=== PATIENT | male | born 1970 | race African-American/Black ===

== ENCOUNTER 2019-09-18 10:03 | Inpatient (IN) | payer SELFPAY ==
--- NOTE | 2019-09-18 10:18 | CT ---
Head CT without contrast: 09/18/2019 COMPARISON: None HISTORY: Right-sided weakness with facial droop and slurred speech FINDINGS: This study is slightly limited by motion artifact. There is an intra-axial hemorrhage in th e left basal ganglia measuring 4.4 x 2.4 cm with surrounding edema. This edema is seen anteriorly, abutting the lateral aspect of the left caudate head. No significant midline shift. Imaged paranasal sinuses/mastoid air cells demonstrate opacification of the mastoid air cells on the left. No displaced calvarial fracture. IMPRESSION: Intra-axial hemorrhage centered in the left basal ganglia. Dr. Macario made aware at 10:13 AM 09/21/2019.
[2019-09-18] MEDS ORDERED: niCARdipine 25 MG in Sodium Chloride 0.9% 250 ML 240 ML IVPB SCH (10:30)
[2019-09-18 10:37] LABS: #Lymphocytes 2.2 thou/uL (1.20-3.40); #Monocytes 0.4 thou/uL (0.11-0.59); #Neutrophils 2.1 thou/uL (1.40-6.50); %Basophils 0.3 % (0.0-1.0); %Eosinophils 0.4 % (0.0-10.0); %Lymphocytes 47.6 % (21.0-51.0); %Monocytes 7.7 % (0.0-10.0); Hemoglobin 14.5 g/dL (14.0-18.0); Mean Corpuscular HGB CONC 33.2 g/dL (32.0-36.0); Mean Corpuscular Hemoglobin 31.1 pg (27.0-31.0); Mean Corpuscular Volume 93.7 fL (78.0-98.0); Mean Platelet Volume 7.9 fL (7.4-10.4); Platelet Count 206 thou/uL (130-400); Red Blood Cell (RBC) Count 4.67 mill/uL (4.70-6.10); White Blood Cell (WBC) Count 4.7 thou/uL (4.8-10.8)
[2019-09-18 10:41] LABS: INR-International Normal Ratio 0.9; Prothrombin Time 12.4 SEC (12.0-14.7)
[2019-09-18 10:42] LABS: PTT 26.2 SEC (22.9-36.1)
[2019-09-18 10:52] LABS: ALT (SGPT) 28 U/L (8-55); AST (SGOT) 19 U/L (5-34); Albumin 4.5 g/dL (3.5-5.0); Alkaline Phosphatase 44 U/L (40-110); Anion Gap 15 mmol/L (10-20); BUN (Urea Nitrogen) 11 mg/dL (8.9-20.6); Bilirubin, Total 0.4 mg/dL (0.2-1.2); CK (CPK) 224 U/L (30-200); Calc. Creatinine Clearance 0 mL/min (70-130); Calcium 9.3 mg/dL (7.8-10.44); Carbon Dioxide 22 mmol/L (22-29); Chloride 105 mmol/L (98-107); Estimated GFR-MDRD Greater than 90; Globulin 3.3 g/dL (2.4-3.5); Glucose 97 mg/dL (70-105); Potassium 4.6 mmol/L (3.5-5.1); Protein, Total 7.8 g/dL (6.0-8.3); Sodium 137 mmol/L (136-145)
[2019-09-18 10:53] LABS: Acetaminophen Less than 6.0 mcg/mL (10.0-30.0); Alcohol Less than 10 mg/dL (Less than 10); Salicylate Less than 8.0 mg/dL (15.0-30.0)
[2019-09-18 11:15] LABS: Bilirubin Negative (Negative); Blood, Urine Negative (Negative); Clarity Clear (Clear); Glucose, Urine (Dipstick) Normal (Negative); Leukocyte Negative Leu/uL (Negative); Nitrite Negative (Negative); Protein, Urine (Dipstick) Negative (Neg-Trace); Urobilinogen Normal mg/dL (Less than 2)
[2019-09-18 11:25] LABS: Amphetamine Not Detected (NotDetected); Barbiturates Screen Not Detected (NotDetected); Benzodiazepine Screen Not Detected (NotDetected); Cocaine Metabolite Screen Not Detected (NotDetected); Medtox Control Line Valid? VALID (VALID); Medtox Reader # READER 1; Methadone Not Detected (NotDetected); Methamphetamine Not Detected (NotDetected); Opiate Screen Not Detected (NotDetected); Oxycodone Screen Not Detected (NotDetected); Phencyclidine (PCP) Not Detected (NotDetected); THC/Cannabinoid Screen Not Detected (NotDetected); Tricyclic Screen Not Detected (NotDetected)
[2019-09-18 11:49] VITALS: BMI 38.3
[2019-09-18] MEDS ORDERED: Sodium Chloride 0.9% 1,000 ML IV SCH (12:00)
--- NOTE | 2019-09-18 12:19 | RAD ---
EXAM: Single view of the chest HISTORY: Strokelike symptoms COMPARISON: None FINDINGS: Single view of the chest shows an enlarged cardiomediastinal silhouette. There is no eviden ce of consolidation, mass, or pleural effusion. The bones are unremarkable. IMPRESSION: Cardiomegaly
--- NOTE | 2019-09-18 13:19 | MRI ---
EXAM: MRI of the brain without and with contrast HISTORY: Stroke with right-sided weakness and intracranial hemorrhage COMPARISON: CT brain 09/18/2019 TECHNIQUE: Multiplanar multisequence MR images were obtained of the brain without and with IV contras t. FINDINGS: There is a 5.2 cm area of hemorrhage in the left basal ganglia. In the center of the area of hemorrha ge, there is restricted diffusion consistent with an area of parenchymal infarction. No intraventricular hemorrhage is seen. Scattered foci of high T2/FLAIR signal in the subcortical and periventricular white matter are likely secondary to small vessel ischemic disease. No abnormal enhancement. No hydronephrosis. The expected flow voids are present. Corpus callosum, pituitary, and craniocervical junction are within normal limits. The calvarium and overlying soft tissues are unremarkable. The paranasal sinuses and right mastoid air cells are well aerated. Fluid is seen in the left mastoid air cells. IMPRESSION: Left basal ganglia infarction/hemorrhage
[2019-09-18] MEDS ORDERED: Magnevist 469MG/ML 20 ML VIAL ONE (16:16)
--- NOTE | 2019-09-18 18:07 | CON ---
DATE OF CONSULTATION: 09/18/2019 SERVICE: Pulmonary Medicine. REASON FOR CONSULTATION: ICU patient. HISTORY OF PRESENT ILLNESS: The patient is a 49-year-old male with past medical history significant for uncontrolled hypertension. He is essentially estranged from the medical community and does not have a lot of other medical problems. That being said, he was in his usual state of health when he had an abrupt onset of neurologic changes. He underwent a CT of the head demonstrating hemorrhagic lesion in the left thalamus. He is being tucked in the ICU for very close neurologic observation. Neurosurgery is aware of the patient, and at this point, thankfully there is nothing of surgical immediacy. He cannot provide much in the way of additional history. He has been able to nod yes and no appropriately. He can follow all commands. He is able to get 1 to 2 words out of the time. Otherwise, he does not appear to be in any significant distress. PAST MEDICAL HISTORY: Hypertension. PAST SURGICAL HISTORY: Appendectomy. SOCIAL HISTORY: He drinks alcohol only socially. He never really drinks to excess, and is a nonsmoker. He has no exposure to chemicals, dust, asbestos, or tuberculosis. FAMILY HISTORY: Noncontributory. ALLERGIES: NO KNOWN DRUG ALLERGIES. MEDICATIONS: List of his inpatient medications was reviewed. No specific updates were made at this time. REVIEW OF SYSTEMS: General; head, ears, eyes, nose, throat; cardiovascular; respiratory; GI; ; musculoskeletal; neurologic; and skin are negative except as mentioned in the HPI. PHYSICAL EXAMINATION: VITAL SIGNS: Afebrile, pulse 91, blood pressure 127/70, respirations 21, and saturation 97% currently on room air. GENERAL: The patient is awake and alert, in no apparent distress. LUNGS: Wonderful air entry. No prolonged expiratory phase, wheezing, or rhonchi are appreciated. HEART: Normal rate and regular. ABDOMEN: Soft, nontender, and nondistended. Bowel sounds are positive. MUSCULOSKELETAL: No cyanosis or clubbing. There is no pitting in the bilateral lower extremities. NEUROLOGIC: He has a 0/5 strength in the right upper extremity, and 3-/5 strength in the right lower extremity. Left upper extremity demonstrates good strength. He is following simple commands, and can move his bilateral lower extremities and left upper extremity with request. LABORATORY DATA: WBC 4.7, hemoglobin 14.5, platelets 206,000. INR 0.9. Basic metabolic profile and liver function studies are otherwise unremarkable. Troponin is negative x1. Urinalysis is unremarkable. Urine drug screen is negative. Alcohol, acetaminophen, and salicylates are also unremarkable. IMAGIN. MRI of the brain demonstrates a left-sided thalamic hemorrhagic infarction. 2. CT of the brain demonstrates a hemorrhagic infarction of the left thalamus/ basal ganglia. There is some edema seen anteriorly. There is a nondisplaced calvarial fracture. ASSESSMENT: 1. Hypertension. 2. Intraparenchymal hemorrhage of the left basal ganglia. 3. Obesity with probable sleep apnea. DISCUSSION AND PLAN: At this point, the patient is wide awake and protecting his airway. He does not have any rhonchorous breath sounds. When he falls asleep, I am curious as to whether or not he will have intermittent desaturation. If present and severe, he may benefit from a CPAP, but it is not clear to me whether or not he would be able to reach up and pull thing off his face. Obviously, we will watch his neurologic status very closely as we repeat imaging through time to make certain these lesions stay stable. We will target systolic blood pressure under 140. P.r.n. medicines will be provided along the way. In 1 to 2 days, his swallow will be tested, but at this point, I do not think it is going to be good enough to warrant safe p.o. nutrition. If that is the case in a couple of days, temporary feeding tube will be placed before likely transitioning towards PEG tube placement. Pulmonary will continue to follow. 70 minutes have been devoted to this patient in various activities. I personally reviewed all imaging studies and laboratory data noted within this document. For fifty percent of this time, I was interacting with the patient at the bedside or coordinating care with the care team. For the remainder of the time I was immediately available to the patient in the hospital unit. Job ID: [id number] [facility]
[2019-09-18] MEDS ORDERED: Ondansetron PF 4 MG/2 ML Vial IVP PRN (18:10)
[2019-09-18] MEDS ORDERED: traMADol HCl 50 MG TAB PO PRN (18:10)
[2019-09-18] MEDS ORDERED: HYDROcodone/Acetaminophen 5/325 mg Tablet PO PRN (18:12)
--- NOTE | 2019-09-18 20:27 | CON ---
DATE OF CONSULTATION: REASON FOR CONSULTATION: Medical management. REASON FOR ADMISSION: Altered mental status. HISTORY OF PRESENT ILLNESS: Mr. Gallego is a very pleasant 49-year-old gentleman who had no known past medical history. The history is obtained from discussion with the patient's sister Ms. Rossana Koehler over the phone as the patient is essentially aphasic and unable to give any additional history, but he was at home talking with his mother when suddenly he started to have some drooping on the right side of his mouth. His face looked swollen and he suddenly started not being able to respond. His mother was concerned and called the patient's sister who hurried over to the house. There, she noted that he looked like he was weak on the right side and could not get up and they called EMS and he was brought to the emergency room for evaluation. There, they did a CT scan of the brain and it was noted that he had an intra-axial hemorrhage in the left basal ganglia. It was also noted that his blood pressure was extremely high and he was admitted to the Neurosurgery Service for further evaluation. We have been consulted to forge operator helper in medical management. REVIEW OF SYSTEMS: Unobtainable as the patient is currently unable to give much of a history. PAST MEDICAL HISTORY: Negative. PAST SURGICAL HISTORY: He has had an appendectomy when he was in the 8th or 9th grade. ALLERGIES: NO KNOWN DRUG ALLERGIES. SOCIAL HISTORY: He is single, has two daughters. He is a nonsmoker. He occasionally drinks beer. He has 3 brothers and 2 living sisters. His mother would be the likely surrogate decision maker according to the patient's sister. His father is . FAMILY HISTORY: Includes hypertension and diabetes, and he had a sister who of breast cancer. MEDICATIONS: He was taking a baby aspirin daily. PHYSICAL EXAMINATION: GENERAL: He is awake and he does follow some commands. He is well developed and well nourished. VITAL SIGNS: On admission, the blood pressure was 171/109, heart rate 89, respiratory rate of 14, and he was afebrile. HEENT: His pupils are equal, round, and reactive. Extraocular muscles are intact. His sclerae were anicteric. His head is atraumatic and normocephalic. Throat, there is no erythema, no exudates. NECK: No adenopathy, no bruits. LUNGS: Clear to auscultation. There is no wheezing, no rales, no rhonchi. CARDIOVASCULAR: He had a normal S1 and S2. He did have an intermittent S4. No murmurs clicks, no rubs. ABDOMEN: Obese, it is soft. Positive for bowel sounds. Appears to be nontender and nondistended. EXTREMITIES: On his extremities, there is no clubbing, cyanosis, no edema. NEUROLOGIC: He has fairly much flaccid paralysis of the right upper extremity. On the right lower extremity, he was able to lift his leg up against gravity, but not against resistance. In the left upper and lower extremity, the muscle strength is normal. Good boilermaker assembly and erection strength. He has an expressive aphasia. LABORATORY DATA: The white blood cell count is 4.7, hemoglobin 14.5, hematocrit is 43.8, and platelet count is 206. INR 0.9. Sodium 137, potassium 4.6, chloride is 105, CO2 is 22, BUN of 11, creatinine 0.81, glucose is 97. CK was 224. Urinalysis was negative. Urine drug screen was also negative and on the CT scan, he had an area in the basal ganglia measuring 4.4 x 2.4 cm with some surrounding edema. There was no evidence of midline shift. ASSESSMENT: This is a pleasant 49-year-old gentleman who suffered an acute intracranial hemorrhage in the left basal ganglia region likely as a result of uncontrolled hypertension. He is being admitted to the ICU. He has already been placed on a Cardene drip. We have been asked to help consult with managing the blood pressure. We would therefore continue the Cardene drip as it has been done, keeping the systolic blood pressure less than 160, would let it remain in that range for the next 24 hours and then begin to lower it even further. We will keep a close eye on his electrolytes during this time and speech therapy as well as physical and occupational therapy will be consulted and further recommendations to follow. Job ID: [id number]
--- NOTE | 2019-09-18 22:27 | HP ---
CHIEF COMPLAINT: Altered mental status with hypertensive left basal ganglia hemorrhage. HISTORY OF PRESENT ILLNESS: Mr. Gallego is a 49-year-old gentleman who presented to the emergency department earlier today for altered mental status. Per ED report , family stated he was at his baseline until approximately 08:30 this morning when he became altered with onset of slurred speech. Upon arrival to the emergency department, he had 0/5 strength in his right upper extremity and 4/5 strength in his right lower extremity. Additionally had right-sided facial droop and dysphasia. A CT of the brain without contrast was completed in the emergency department, which revealed findings of left basal ganglia hemorrhage, likely hypertensive in nature as his presenting blood pressure was 180/110. Per report, patient has a history of hypertension. The patient was awake, alert, and following commands in the Emergency Department and he was maintaining his airway , thus no intubation was required. He was admitted to the Critical Care Unit for close neurologic monitoring and blood pressure control. I evaluated the patient this evening. It was difficult to obtain a full history given his dysphasia. However, he was able to respond to questioning by shaking his head yes and no. He also was discernible with certain words. When asked if he has a history of high blood pressure, he nodded yes. I was unable to determine, if he was on any antihypertensives at baseline. He moved his extremities on command, aside from no movement in his right arm. He denies any complaints at this time. He denies any headache. When I evaluated him at approximately 1800 hours this evening, his systolic blood pressure was 144. PAST MEDICAL HISTORY: Hypertension. PAST SURGICAL HISTORY: Appendectomy. MEDICATIONS: Unable to obtain from patient report given his dysphasia. Per ED report, the patient may be on aspirin, but no other blood thinners. REVIEW OF SYSTEMS: All systems negative except as noted above in the HPI. PHYSICAL EXAMINATION: GENERAL: The patient is awake, alert and appropriate. Following commands. Pupils are equal, round, and reactive to light. Extraocular movements are intact. Right-sided facial droop. 5/5 strength throughout his left upper and lower extremities. 0/5 strength in his right upper extremity. 4/5 strength throughout his right lower extremity. He had some difficulty with wiggling the toes of his right foot as well as dorsiflexion and plantar flexion were weaker on the right. Gait was not assessed. LABORATORY DATA: White blood cell 4.7, hemoglobin 14.5, platelet count 206. Sodium 137, potassium 4.6, glucose 97, creatine kinase 224, troponin less than 0.010. PT 12.4, INR 0.9, APTT 26.2. UA was within normal limits. IMAGING: MRI of the brain with and without contrast as well as CT of the brain without contrast demonstrated left basal ganglia hemorrhage. IMPRESSION AND DIAGNOSES: 1. Left basal ganglia hemorrhage, likely hypertensive in nature. 2. Hypertension, uncontrolled. PLAN: At this time, the patient's case and imaging has been reviewed with Dr. Jasso. No neurosurgical intervention indicated at this time. Both the MRI and CT of the brain displayed left basal ganglia hemorrhage that is likely hypertensive in nature. The MRI was ordered to assess for any underlying lesions or other abnormalities, however, none were seen. We have ordered a repeat CT of the brain without contrast to be completed tomorrow morning to monitor for progression of the hemorrhage. Per ED report, family member reports patient takes aspirin but no other blood thinners. It is unknown, if he is on 81 mg or 325 mg aspirin. Hold all blood thinners. The patient was admitted to the Critical Care Unit for q.1 hour neuro checks and blood pressure control. Blood pressure parameters will be systolic less than 140 and diastolic less than 90. The patient was started on Cardene drip in the ED. We have consulted our medical colleagues for assistance with blood pressure management; however, this evening, it seems that the patient's blood pressures have been overall well controlled. His highest systolic has been in the 150s and again we will aim to maintain systolic less than 140. Overall, patient appears to be resting comfortably without any signs of acute distress. We will see patient again tomorrow morning. Call sooner for any neurologic changes or other concerns. This was a 50 minute initial visit in which greater than 50% of the time was spent in review of records, imaging, evaluation, examination of the patient, and formulation of plan. The remaining time was spent in counseling and coordination of care. Job ID: [id number] [facility]
[2019-09-19 04:20] LABS: #Lymphocytes 2.5 thou/uL (1.20-3.40); #Monocytes 0.5 thou/uL (0.11-0.59); #Neutrophils 3.6 thou/uL (1.40-6.50); %Basophils 0.1 % (0.0-1.0); %Eosinophils 0.3 % (0.0-10.0); %Lymphocytes 38.2 % (21.0-51.0); %Monocytes 7.4 % (0.0-10.0); Hemoglobin 14.2 g/dL (14.0-18.0); Mean Corpuscular Hemoglobin 31.3 pg (27.0-31.0); Mean Corpuscular Volume 94.7 fL (78.0-98.0); Platelet Count 211 thou/uL (130-400); RBC Distribution Width 13.4 % (11.5-14.5); Red Blood Cell (RBC) Count 4.54 mill/uL (4.70-6.10); White Blood Cell (WBC) Count 6.6 thou/uL (4.8-10.8)
[2019-09-19 04:40] LABS: Anion Gap 12 mmol/L (10-20); BUN (Urea Nitrogen) 12 mg/dL (8.9-20.6); Calc. Creatinine Clearance 228 mL/min (70-130); Calcium 8.8 mg/dL (7.8-10.44); Carbon Dioxide 25 mmol/L (22-29); Chloride 102 mmol/L (98-107); Estimated GFR-MDRD Greater than 90; Glucose 102 mg/dL (70-105); Potassium 3.9 mmol/L (3.5-5.1); Sodium 135 mmol/L (136-145)
--- NOTE | 2019-09-19 06:29 | CT ---
CT OF THE BRAIN WITHOUT CONTRAST: Date: 09/19/2019 COMPARISON: 09/18/2019. HISTORY: Follow-up left basal ganglia hemorrhage. TECHNIQUE: Multiple contiguous axial images were obtained in a CT of the brain without contrast. FINDINGS: There is a hemorrhage in the left basal ganglia which is grossly stable in size measuring approximate ly 4.5 cm in greatest dimension. There is slight mass effect on the left lateral ventricle which has slightly increased compared to the prior examination. No significant midline shift or downward hernia tion is seen. No intraventricular hemorrhage is seen. The calvarium and overlying soft tissues are unremarkable. The visualized paranasal sinuses and masto id air cells are well aerated. IMPRESSION: Stable left basal ganglia hemorrhage. POS: [facility]
[2019-09-19] MEDS: hydrALAZINE 20 MG/ML VIAL SLOW IVP PRN ×3 (07:42→20:27)
--- NOTE | 2019-09-19 08:19 | PDOC.HOSPP ---
- Subjective Encounter Date: 09/19/19 Encounter Time: 09:11 Subjective: Mr. Gallego was seen today as a follow-up for a left basal ganglia hemorrhage. Patient is still having difficulty with speech, and continues to use nodding as a mode of communication. He responds that he is feeling better today. Mr. Gallego denies headache, chest pain, nausea and vomiting. - Objective Vital Signs & Weight: Vital Signs (12 hours) Temp Pulse BP Pulse Ox 09/19/19 07:57 96 09/19/19 07:42 86 167/104 H 09/19/19 07:00 98.6 F Weight Weight 298 lb 8.094 oz Most Recent Monitor Data Heart Rate from ECG 82 NIBP 138/70 NIBP BP-Mean 92 Respiration from ECG 23 SpO2 100 I&O: 09/18/19 09/19/19 09/20/19 06:59 06:59 06:59 Intake Total 1379 Output Total 1540 70 Balance -161 -70 Result Diagrams: 09/19/19 04:11 09/19/19 04:11 Additional Labs: Accuchecks 09/18/19 10:18 POC Glucose 91 Hospitalist ROS - Review of Systems All other systems reviewed; all pertinent +/- noted in HPI/Subj - Medication Medications: Active Medications Generic Name Dose Route Start Last Admin Trade Name Freq PRN Reason Stop Dose Admin Hydralazine HCl 10 mg 09/18/19 18:07 09/19/19 07:42 Apresoline SLOW IVP 10 mg Q15M PRN Administration SBP >140 and/or DBP >90 Nicardipine HCl 25 mg/ Sodium 250 mls @ 0 mls/hr 09/18/19 10:30 09/18/19 18: 49 Chloride IVPB 250 mls INF IDALIA Administration Protocol Titrate - Exam General Appearance: awake alert Eye: PERRL ENT: normocephalic atraumatic Heart: RRR, no murmur Respiratory: CTAB, no wheezes, no tachypnea Extremities: no cyanosis, no clubbing, no edema Neurological: speech deficit Neurological - other findings: 4/5 strength on L UE, 1/5 strength on R UE, 4/5 strength L UE, 2/5 on R LE Hosp A/P (1) Intracranial hemorrhage Code(s): I62.9 - NONTRAUMATIC INTRACRANIAL HEMORRHAGE, UNSPECIFIED Status: Acute (2) Hypertension Code(s): I10 - ESSENTIAL (PRIMARY) HYPERTENSION Status: Acute - Plan * Intracranial hemorrhage- stable, begin speech and physical therapy * Hypertension- switch to oral antihypertensive medication if patient is able to control his swallowing * Patient seen and examined with Dot Welsh MS-2 and agree with above. He is more alert today. His speech is a bt better as well but he continues to have some dysarthria. He has fairly flaccid paralysis on the right upper extremity, and 4/5 in the right leg. Will wean the Cardene drip, and place him on Amlodpine, along with Hydralazine as needed. I suspect he can be moved out of the ICU.
[2019-09-19] MEDS ORDERED: FLU VACC QS2019-20(6MOS UP)/PF 60 MCG/0.5 ML SYRINGE IM ONE (09:00)
--- NOTE | 2019-09-19 09:03 | PRG ---
DATE OF SERVICE: 09/19/2019 SUBJECTIVE: John Paul Gallego is a 49-year-old morbidly obese gentleman, 298 pounds, 6 feet 2 inches, BMI 38, status post left basal ganglia hemorrhage. Denies any pain or discomfort this morning. OBJECTIVE: VITAL SIGNS: , blood pressure 138/70, . CHEST: Decreased breath sounds. No wheezing. CARDIAC: Normal S1 and S2. No gallops. ABDOMEN: No masses. LABORATORY DATA: His lytes are normal. H and H unremarkable. Drug screen is negative. IMPRESSION: 1. Left basal ganglia hemorrhage. 2. Uncontrolled hypertension. 3. Morbid obesity. PLAN: Pulmonary [place], follow while in the ICU. Probably, he needs an outpatient sleep study. Control blood pressure. Supportive care. PT. Job ID: [id number]
--- NOTE | 2019-09-19 09:39 | PRG ---
DATE OF SERVICE: 09/19/2019 This is Ajit Osman PA-C dictating a report for Phil Jasso MD. 50 minutes subsequent patient evaluation, greater than 50% of the time was spent counseling and coordinating the patient's care, remainder of the exam was spent in review of the patient's medical records and formulation of treatment plan. Mr. Gallego is hospital day #1 having sustained large left basal ganglia hemorrhage likely related to hypertension. The patient's blood pressure has remained well controlled and was even off Cardene, however, he has had a few episodes of systolic blood pressure greater than 140. Likely, he needs to begin on oral medications and supplement with IV and hopefully will not need to require any further Cardene. On physical examination, the patient remains largely aphasic. He is able to answer simple yes or no questions. He is able to move the left arm and leg very well. He has antigravity in the right leg. He has very little movement in the right upper extremity. Does not appear to be in any acute distress. He denies headache. This time, he does not require neurosurgical intervention. Review of head CT from today shows stability of the left basal ganglia hemorrhage. He will not need neurosurgical intervention, although blood pressure will be paramount. At this time, we would like his systolic blood pressure remain less than 140. Likely meet criteria to transfer to stroke unit, we are fine with this. Advance diet as tolerated. He will likely need speech therapy in regard to this. Please call with any changes in patient's neurologic status, otherwise we will monitor, but again do not plan for neurosurgical intervention. Job ID: [id number]
--- NOTE | 2019-09-19 10:47 | PRG ---
DATE OF SERVICE: 09/19/2019 A 30-minute initial visit note. I reviewed the notes of my colleague, Marsha Prieto PA-C and agree with its content. Mr. Gallego is a 49-year-old man with hypertension, who presented with right-sided hemiparesis, right facial droop, and an upper motor neuron pattern, and aphasia yesterday. Head CT demonstrated a large putaminal centered hypertensive hemorrhage. There is no intraventricular extension of concern. Head CT this morning demonstrates stability with somewhat increase at a toxic edema surrounding this area, and the MRI demonstrates no abnormal enhancement. The diffusion restriction in the center of the clot, my opinion is not ischemic brain, but simply hematoma, restricting diffusion. Nevertheless, this will be continued as stroke rehab and that we need to control his blood pressure and maintain a systolic, I would prefer 150 over diastolic 90, in other words, blood pressure below 150/90 blood pressure has been somewhat difficult to control overnight. He is on a nicardipine drip, but the recent numbers have been more satisfactory of 130 to 160. He is stable for dismissal from the ICU. We will arrange for that. I would like to repeat MRI of the brain without and with contrast along with MRA, MRV in 6 weeks. Job ID: [id number]
[2019-09-19] MEDS: Amlodipine 5 MG TAB PO SCH (10:55)
[2019-09-19] MEDS ORDERED: Labetalol HCl 100 MG/20 ML VIAL SLOW IVP PRN ×2 (23:40→23:46)
[2019-09-20] MEDS ORDERED: Labetalol HCl 100 MG/20 ML VIAL SLOW IVP PRN ×2 (00:13→07:01)
[2019-09-20] MEDS ORDERED: hydrALAZINE 25 MG TAB PO PRN (07:39)
--- NOTE | 2019-09-20 08:39 | PDOC.HOSPP ---
- Subjective Encounter Date: 09/20/19 Encounter Time: 09:32 Subjective: Follow-up with Mr. Gallego, who is being seen for a left basal ganglia hemorrhage. Patient is stable and daughter notes a slight improvement in his speech. Denies chest pain, SOB, nausea, vomiting or abdominal pain. Pt is reported to have had a normal bowel movement earlier. - Objective Vital Signs & Weight: Vital Signs (12 hours) Temp Pulse Resp BP BP Pulse Ox 09/20/19 07:56 98.4 F 106 H 18 148/83 H 95 09/20/19 04:00 98.7 F 107 H 24 H 127/66 93 L 09/20/19 00:58 102 H 150/97 H 09/20/19 00:14 115 H 158/87 H 09/20/19 00:00 99.1 F 116 H 18 158/87 H 91 L Weight Admit Weight 298 lb Weight 298 lb 8.094 oz Most Recent Monitor Data Heart Rate from ECG 97 NIBP 135/86 NIBP BP-Mean 102 Respiration from ECG 19 SpO2 100 I&O: 09/19/19 09/20/19 09/21/19 06:59 06:59 06:59 Intake Total 1379 100 Output Total 1540 1785 Balance -161 -1685 Result Diagrams: 09/19/19 04:11 09/19/19 04:11 Hospitalist ROS - Review of Systems All other systems reviewed; all pertinent +/- noted in HPI/Subj - Medication Medications: Active Medications Generic Name Dose Route Start Last Admin Trade Name Freq PRN Reason Stop Dose Admin Amlodipine Besylate 5 mg 09/19/19 09:00 09/19/19 10:55 Norvasc PO 5 mg DAILY IDALIA Administration Hydralazine HCl 10 mg 09/18/19 18:07 09/19/19 20:27 Apresoline SLOW IVP 10 mg Q15M PRN Administration SBP >140 and/or DBP >90 Nicardipine HCl 25 mg/ Sodium 250 mls @ 0 mls/hr 09/18/19 10:30 09/18/19 18: 49 Chloride IVPB 250 mls INF IDALIA Administration Protocol Titrate - Exam General Appearance: awake alert Eye: PERRL, anicteric sclera ENT: normocephalic atraumatic Heart: RRR, no murmur, no gallops, no rubs Respiratory: CTAB, no wheezes, no rales, no ronchi, no tachypnea Extremities: no cyanosis, no clubbing, no edema Skin: normal turgor Neurological: speech deficit (improved speech since admission but slurring still present) Hosp A/P (1) Intracranial hemorrhage Code(s): I62.9 - NONTRAUMATIC INTRACRANIAL HEMORRHAGE, UNSPECIFIED Status: Acute (2) Hypertension Code(s): I10 - ESSENTIAL (PRIMARY) HYPERTENSION Status: Acute - Plan * Intracranial hemorrhage- stable, continue speech and physical therapy. Patient has began a soft food diet * Hypertension- blood pressure is controlled, continue amlodipine, and hydralazine as needed, since patient can control his swallowing Patient seen and examined with Dot Welsh MS-2 and agree with above. Mr. Gallego's speech has improved some. He denies any headache or chest pain. On exam he remains weak on the right side, with flaccid paralysis of the right upper extremity. Will continue to monitor his blood pressure, which at this time is in a reasonable range. The goal will be to keep his systolic blood pressure below 140. I spoke with Ajit Osman PA-C, and the Hospitalist Team will transition into the Primary Attending role. Continue PT/OT/ Speech Therapy and will begin discharge planning.
[2019-09-20] MEDS: Carvedilol 3.125 MG TAB PO SCH ×2 (09:00→16:12)
[2019-09-20] MEDS: Amlodipine 5 MG TAB PO SCH (09:00)
[2019-09-20] MEDS: Acetaminophen 325 MG TAB PO PRN ×2 (12:16→16:15)
--- NOTE | 2019-09-20 13:27 | PRG ---
DATE OF SERVICE: 09/20/2019 A 50-minute subsequent patient evaluation, of which greater than 50% of the exam was spent counseling and coordinating the patient's care. Remainder of the exam was spent in review of the patient's medical records and formulation of appropriate treatment plan. Mr. Gallego is hospital day #2, having sustained left putamen hypertensive bleed. The patient continues to improve. He has had some intermittent systolic blood pressure readings above 150 and we would like this better controlled as his full systolic blood pressure is less than 140. Overall, the patient appears to be neurologically stable. He follows commands. He is awake and alert. He continues to be mostly aphasic, though he is able to formulate yes's and no's. He has a flicker of movement in the right upper extremity and is profoundly weak in the right lower extremity. He has good strength in the left arm and leg. His daughter was updated at bedside. There is no role for neurosurgical intervention, it is certainly good news for the patient. He needs adequate blood pressure control. At this time, Neurosurgery will sign off from the patient. We will follow up with the patient in our clinic in 6 weeks and obtain an MRI of the brain with and without contrast, MRA and MRV to fully evaluate the patient. Please call with any changes in the patient's neurologic status. Otherwise, we will sign off. Job ID: [id number]
[2019-09-21] MEDS: Amlodipine 5 MG TAB PO SCH (07:57)
[2019-09-21] MEDS: Carvedilol 3.125 MG TAB PO SCH ×2 (07:57→17:14)
[2019-09-21] MEDS: Acetaminophen 325 MG TAB PO PRN ×2 (08:01→16:03)
[2019-09-21] MEDS ORDERED: Amlodipine 10 MG TAB PO SCH (09:45)
[2019-09-21] MEDS: Labetalol HCl 100 MG/20 ML VIAL SLOW IVP PRN ×3 (09:46→21:42)
[2019-09-21] MEDS: hydrALAZINE 20 MG/ML VIAL SLOW IVP PRN ×2 (11:47→14:45)
[2019-09-21] MEDS ORDERED: Carvedilol 6.25 MG TAB PO SCH ×3 (16:00→22:00)
--- NOTE | 2019-09-21 16:10 | PDOC.HOSPP ---
- Subjective Encounter Date: 09/21/19 Encounter Time: 16:08 Subjective: Patient is sleepy. He is able to follow commands. He has no complaints. Sister is in the room, had questions on when he would recover from his stroke. Patient still has some right sided weakness but is able to move his toes better. She states he is able to chew food better compared to yesterday. BP was on the higher side this morning, given additional amlodipine - Objective Vital Signs & Weight: Vital Signs (12 hours) Temp Pulse Pulse Resp BP BP BP 09/21/19 15:57 155/78 H 09/21/19 15:51 99.8 F H 93 20 165/86 H 09/21/19 14:45 91 150/78 H 09/21/19 13:33 91 147/80 H 09/21/19 12:09 99.9 F H 89 18 154/87 H 09/21/19 11:47 87 154/87 H 09/21/19 09:52 87 161/95 H 09/21/19 09:46 87 161/95 H 09/21/19 09:44 160/80 H 09/21/19 09:30 87 161/95 H 09/21/19 07:57 90 156/72 H 09/21/19 07:54 99.4 F 94 27 H 194/108 H 09/21/19 04:34 98.3 F 88 24 H 153/87 H Pulse Ox 09/21/19 15:57 09/21/19 15:51 99 09/21/19 14:45 09/21/19 13:33 09/21/19 12:09 98 09/21/19 11:47 09/21/19 09:52 09/21/19 09:46 09/21/19 09:44 09/21/19 09:30 09/21/19 07:57 09/21/19 07:54 96 09/21/19 04:34 96 Weight Admit Weight 298 lb Weight 298 lb 8.094 oz Most Recent Monitor Data Heart Rate from ECG 97 NIBP 135/86 NIBP BP-Mean 102 Respiration from ECG 19 SpO2 100 I&O: 09/20/19 09/21/19 09/22/19 06:59 06:59 06:59 Intake Total 100 480 Output Total 3712 400 650 Balance -8895 -400 -170 Result Diagrams: 09/19/19 04:11 09/19/19 04:11 Hospitalist ROS - Medication Medications: Active Medications Generic Name Dose Route Start Last Admin Trade Name Fred PRN Reason Stop Dose Admin Acetaminophen 650 mg 09/18/19 18:10 09/21/19 16:03 Tylenol PO 650 mg Q6H PRN Administration Fever>101/(Mi/Mod/Sev) Pain Amlodipine Besylate 5 mg 09/19/19 09:00 09/21/19 07:57 Norvasc PO 5 mg DAILY IDALIA Administration Carvedilol 3.125 mg 09/20/19 08:00 09/21/19 07:57 Coreg PO 3.125 mg BID-WM IDALIA Administration Carvedilol 6.25 mg 09/21/19 16:00 09/21/19 15:57 Coreg PO 09/21/19 18:00 6.25 mg NOW IDALIA Administration Labetalol HCl 10 mg 09/20/19 07:01 09/21/19 13:33 Normodyne SLOW IVP 10 mg Q4H PRN Administration SBP>140 AND hr>70 - Exam General Appearance: NAD, awake alert Eye: PERRL, anicteric sclera ENT: normocephalic atraumatic, no oropharyngeal lesions Neck: supple, symmetric, no JVD Heart: RRR, no murmur, no gallops, no rubs Respiratory: CTAB, no wheezes, no rales, no ronchi Gastrointestinal: soft, non-tender, non-distended Extremities: no cyanosis, no clubbing, no edema Skin: normal turgor, no lesions, no rashes Neurological - other findings: patient unable to lift up right arm. He can bend right toe slightly Musculoskeletal: normal tone, normal strength Psychiatric - other findings: drowsy Hosp A/P - Plan CT brain 09/18: left basal ganglia hemorrhage CT brain 09/19: left basal ganglia heomrrhage MRI 09/18: left basal ganglia infarction Chest X ray 09/18: mild cardiomegaly This is a 49 year old male who pressented with confusion and right sided weakness, found to have intracerebral hemorrhage #Intracerebral hemorrhage #Hypertensive emergency - patient with residual right sided weakness - diet currently NDDI pureed with nectar thick liquid - BP goal 160/101 on admission. Current BP this morning 190/101. Increase amlodipine to 10 mg daily. Will increase coreg to 6.25 if still > 140. If persistently elevated will add hydralazine 25 mg po tid Hyponatremia - sodium 135, stable
[2019-09-22] MEDS ORDERED: Carvedilol 6.25 MG TAB PO PRN
[2019-09-22 04:25] LABS: Hemoglobin 14.7 g/dL (14.0-18.0); Mean Corpuscular HGB CONC 33.7 g/dL (32.0-36.0); Mean Corpuscular Hemoglobin 31.7 pg (27.0-31.0); Mean Corpuscular Volume 94.2 fL (78.0-98.0); Mean Platelet Volume 7.6 fL (7.4-10.4); Platelet Count 208 thou/uL (130-400); RBC Distribution Width 13.1 % (11.5-14.5); Red Blood Cell (RBC) Count 4.64 mill/uL (4.70-6.10); White Blood Cell (WBC) Count 7.2 thou/uL (4.8-10.8)
[2019-09-22 04:49] LABS: Anion Gap 16 mmol/L (10-20); BUN (Urea Nitrogen) 21 mg/dL (8.9-20.6); Calc. Creatinine Clearance 217 mL/min (70-130); Calcium 9.7 mg/dL (7.8-10.44); Carbon Dioxide 23 mmol/L (22-29); Chloride 103 mmol/L (98-107); Estimated GFR-MDRD Greater than 90; Glucose 100 mg/dL (70-105); Potassium 3.7 mmol/L (3.5-5.1); Sodium 138 mmol/L (136-145)
[2019-09-22] MEDS: Labetalol HCl 100 MG/20 ML VIAL SLOW IVP PRN (05:24)
[2019-09-22] MEDS: Amlodipine 5 MG TAB PO SCH (09:40)
[2019-09-22] MEDS: Carvedilol 3.125 MG TAB PO SCH (09:41)
--- NOTE | 2019-09-22 12:24 | PDOC.HOSPP ---
- Subjective Encounter Date: 09/22/19 Encounter Time: 10:00 Subjective: CC: f/u stroke The patient has no complaints. He is sitting and watching TV.No headaches or numbness. He got IV labetalol overnight for hypertension. Received 12.5 mg of coreg last night - Objective Vital Signs & Weight: Vital Signs (12 hours) Temp Pulse Resp BP BP Pulse Ox 09/22/19 11:40 98.0 F 89 14 136/74 94 L 09/22/19 09:40 82 130/92 H 09/22/19 07:20 94 L 09/22/19 07:05 98.4 F 82 15 130/92 H 94 L 09/22/19 06:14 142/86 H 09/22/19 05:24 86 162/78 H 09/22/19 04:00 97.9 F 91 16 150/91 H 96 Weight Admit Weight 298 lb Weight 298 lb 8.094 oz Most Recent Monitor Data Heart Rate from ECG 97 NIBP 135/86 NIBP BP-Mean 102 Respiration from ECG 19 SpO2 100 I&O: 09/21/19 09/22/19 09/23/19 06:59 06:59 06:59 Intake Total 894 300 Output Total 400 1400 325 Balance -400 -506 -25 Result Diagrams: 09/22/19 04:09 09/22/19 04:09 Hospitalist ROS - Review of Systems Constitutional: denies: fever, chills - Medication Medications: Active Medications Generic Name Dose Route Start Last Admin Trade Name Freq PRN Reason Stop Dose Admin Acetaminophen 650 mg 09/18/19 18:10 09/21/19 16:03 Tylenol PO 650 mg Q6H PRN Administration Fever>101/(Mi/Mod/Sev) Pain - Exam General Appearance: NAD, awake alert Eye: PERRL, anicteric sclera ENT: normocephalic atraumatic, no oropharyngeal lesions Neck: no JVD Heart: RRR, no murmur, no gallops, no rubs Respiratory: CTAB, no wheezes, no rales, no ronchi Gastrointestinal: soft, non-tender, non-distended Extremities: no cyanosis, no clubbing, no edema Skin: normal turgor, no lesions, no rashes Neurological - other findings: unable to lift right arm, can move right foot some. Musculoskeletal - other findings: 12/09 strength in LUE and LLE. 0/5 RUE and RLE Psychiatric: normal affect Psychiatric - other findings: flat affect Hosp A/P - Plan CT brain 09/18: left basal ganglia hemorrhage CT brain 09/19: left basal ganglia heomrrhage MRI 09/18: left basal ganglia infarction Chest X ray 09/18: mild cardiomegaly This is a 49 year old male who pressented with confusion and right sided weakness, found to have intracerebral hemorrhage #Intracerebral hemorrhage #Hypertensive emergency - patient with residual right sided weakness - diet currently NDDI pureed with nectar thick liquid - increase coreg to 12.5 mg bid tonight - increase amlodipine to 10 mg daily starting tomorrow. Goal BP around 140 - continue physical therapy, OT and speech Hyponatremia - sodium 135, stable Dispo: needs rehab, adequate BP control
[2019-09-22] MEDS: Carvedilol 6.25 MG TAB PO SCH (16:23)
[2019-09-22] MEDS ORDERED: hydrALAZINE 20 MG/ML VIAL SLOW IVP PRN (23:20)
[2019-09-23] MEDS ORDERED: Labetalol HCl 100 MG/20 ML VIAL SLOW IVP SCH (01:15)
[2019-09-23] MEDS: Acetaminophen 325 MG TAB PO PRN ×2 (01:54→18:34)
[2019-09-23] MEDS: Amlodipine 5 MG TAB PO SCH (08:36)
[2019-09-23] MEDS: Carvedilol 6.25 MG TAB PO SCH ×2 (08:36→16:21)
--- NOTE | 2019-09-23 17:49 | PDOC.HOSPP ---
- Subjective Encounter Date: 09/23/19 Encounter Time: 10:30 Subjective: The patient has no complaints. More alert today. Still has weakness on the right side. Patient was anxious this morning per and thinks that may have contributed to his blood pressure going up - Objective Vital Signs & Weight: Vital Signs (12 hours) Temp Pulse Pulse Resp BP BP BP 09/23/19 16:21 140/82 09/23/19 15:26 98.9 F 93 16 09/23/19 11:00 98.7 F 91 15 144/90 H 09/23/19 10:02 88 146/95 H 09/23/19 09:41 80 16 142/81 H 09/23/19 08:15 09/23/19 07:30 98.4 F 87 14 156/90 H Pulse Ox 09/23/19 16:21 09/23/19 15:26 94 L 09/23/19 11:00 95 09/23/19 10:02 09/23/19 09:41 09/23/19 08:15 95 09/23/19 07:30 95 Weight Admit Weight 298 lb Weight 298 lb 8.094 oz Most Recent Monitor Data Heart Rate from ECG 97 NIBP 135/86 NIBP BP-Mean 102 Respiration from ECG 19 SpO2 100 I&O: 09/22/19 09/23/19 09/24/19 06:59 06:59 06:59 Intake Total 894 600 Output Total 1400 825 600 Balance -506 -225 -600 Result Diagrams: 09/22/19 04:09 09/22/19 04:09 Hospitalist ROS - Review of Systems Constitutional: denies: fever, chills - Medication Medications: Active Medications Generic Name Dose Route Start Last Admin Trade Name Freq PRN Reason Stop Dose Admin Acetaminophen 650 mg 09/18/19 18:10 09/23/19 01:54 Tylenol PO 650 mg Q6H PRN Administration Fever>101/(Mi/Mod/Sev) Pain Amlodipine Besylate 10 mg 09/23/19 09:00 09/23/19 08:36 Norvasc PO 10 mg DAILY IDALIA Administration Hydralazine HCl 25 mg 09/20/19 07:39 09/22/19 21:46 Apresoline PO 25 mg TID PRN Administration SBP Greater Than 170 Hydralazine HCl 10 mg 09/22/19 23:20 09/22/19 23:43 Apresoline SLOW IVP 10 mg Q4H PRN Administration SBP > 180 and HR < 70 - Exam General Appearance: NAD, awake alert Eye: PERRL, anicteric sclera ENT: normocephalic atraumatic, no oropharyngeal lesions Neck: no JVD Heart: RRR, no murmur, no gallops, no rubs Respiratory: CTAB, no wheezes, no rales, no ronchi Gastrointestinal: soft, non-tender, non-distended Extremities: no cyanosis, no edema Neurological - other findings: can move right leg some, able to move right hand. 12/09 LUE and LLE Hosp A/P - Plan CT brain 09/18: left basal ganglia hemorrhage CT brain 09/19: left basal ganglia heomrrhage MRI 09/18: left basal ganglia infarction Chest X ray 09/18: mild cardiomegaly This is a 49 year old male who pressented with confusion and right sided weakness, found to have intracerebral hemorrhage #Intracerebral hemorrhage #Hypertensive emergency - patient with residual right sided weakness - diet currently NDDI pureed with nectar thick liquid - increase coreg to 25 mg bid starting tonight - amlodipine 10 mg daily - add hydralazine 25 mg po to tid prn for BP > 140 - continue physical therapy, OT and speech - needs inpatient rehab Hyponatremia - sodium 135, stable Dispo: needs rehab, adequate BP control
[2019-09-23] MEDS ORDERED: Carvedilol 6.25 MG TAB PO SCH (18:15)
[2019-09-23] MEDS: Carvedilol 25 MG TAB PO SCH (18:47)
[2019-09-23] MEDS: hydrALAZINE 25 MG TAB PO PRN (22:19)
[2019-09-24] MEDS: hydrALAZINE 25 MG TAB PO PRN ×2 (00:16→06:18)
[2019-09-24] MEDS: Acetaminophen 325 MG TAB PO PRN (01:07)
[2019-09-24] MEDS ORDERED: cloNIDine 0.1 MG TAB PO PRN (02:06)
[2019-09-24 07:16] LABS: Bacteria/HPF 4+ HPF (None Seen); Bilirubin Negative (Negative); Blood, Urine 2+ (Negative); Clarity Turbid (Clear); Glucose, Urine (Dipstick) Normal (Negative); Leukocyte 500 Leu/uL (Negative); Nitrite 2+ (Negative); Protein, Urine (Dipstick) 100 mg/dL (Neg-Trace); RBC/HPF Greater than 50 HPF (0-3); Squamous Epithelial None Seen HPF (0-3); WBC/HPF Greater than 50 HPF (0-3)
[2019-09-24 07:25] LABS: Urine Culture Reflex Yes Yes
[2019-09-24] MEDS: Amlodipine 5 MG TAB PO SCH (09:13)
[2019-09-24] MEDS: Carvedilol 25 MG TAB PO SCH ×2 (09:13→20:51)
--- NOTE | 2019-09-24 15:26 | PDOC.HOSPP ---
- Subjective Encounter Date: 09/24/19 Encounter Time: 11:00 Subjective: The patient is sitting up and watching TV. STill has RUE and RLE weakness He got clonidine overnight, and 50 mg hydralazine oral for BP > 150 - Objective Vital Signs & Weight: Vital Signs (12 hours) Temp Pulse Resp BP BP Pulse Ox 09/24/19 11:00 98.4 F 76 14 150/94 H 95 09/24/19 10:26 78 145/86 H 09/24/19 09:13 86 155/88 H 09/24/19 09:11 93 L 09/24/19 06:18 77 152/92 H 09/24/19 04:00 98.7 F 78 18 145/80 H 93 L Weight Admit Weight 298 lb Weight 298 lb 8.094 oz Most Recent Monitor Data Heart Rate from ECG 97 NIBP 135/86 NIBP BP-Mean 102 Respiration from ECG 19 SpO2 100 I&O: 09/23/19 09/24/19 09/25/19 06:59 06:59 06:59 Intake Total 600 1780 Output Total 825 2550 Balance -225 -770 Result Diagrams: 09/22/19 04:09 09/22/19 04:09 Hospitalist ROS - Medication Medications: Active Medications Generic Name Dose Route Start Last Admin Trade Name Freq PRN Reason Stop Dose Admin Acetaminophen 650 mg 09/18/19 18:10 09/24/19 01:07 Tylenol PO 650 mg Q6H PRN Administration Fever>101/(Mi/Mod/Sev) Pain Amlodipine Besylate 10 mg 09/23/19 09:00 09/24/19 09:13 Norvasc PO 10 mg DAILY IDALIA Administration Carvedilol 25 mg 09/23/19 17:00 09/24/19 09:13 Coreg PO 25 mg BID-WM IDALIA Administration - Exam General Appearance: NAD, awake alert Eye: PERRL, anicteric sclera ENT: normocephalic atraumatic, no oropharyngeal lesions Neck: supple, no JVD Heart: RRR, no murmur, no gallops, no rubs Respiratory: CTAB, no wheezes, no rales, no ronchi Gastrointestinal: soft, non-tender, non-distended, normal bowel sounds Extremities: no cyanosis, no clubbing, no edema Skin: normal turgor, no lesions, no rashes Neurological: cranial nerve grossly intact, normal sensation to touch, no focal deficits, no new deficit Musculoskeletal: normal tone, normal strength, no muscle wasting Psychiatric - other findings: RUE cannot lift up, RLE can move foot 2/5 strength. LUE/LLE 12/09 Hosp A/P - Plan CT brain 09/18: left basal ganglia hemorrhage CT brain 09/19: left basal ganglia heomrrhage MRI 09/18: left basal ganglia infarction Chest X ray 09/18: mild cardiomegaly This is a 49 year old male who pressented with confusion and right sided weakness, found to have intracerebral hemorrhage #Intracerebral hemorrhage #Hypertensive emergency - patient with residual right sided weakness - diet currently NDDI pureed with nectar thick liquid - BP 150 to > 160 overnight - increase coreg to 37.5 mg bid today, continue amlodipine 10 mg daily - will d/c hydralazine since it seems to have no effect - start clonidine 0.1 mg bid - continue physical therapy, OT and speech - needs inpatient rehab Hyponatremia - resolved Dispo: needs rehab, adequate BP control
[2019-09-24] MEDS ORDERED: Carvedilol 6.25 MG TAB PO SCH (16:45)
[2019-09-24] MEDS: cloNIDine 0.1 MG TAB PO SCH (20:53)
[2019-09-25] MEDS ORDERED: Carvedilol 25 MG TAB PO SCH (08:00)
[2019-09-25] MEDS: cloNIDine 0.1 MG TAB PO SCH ×2 (11:10→20:32)
[2019-09-25] MEDS: Carvedilol 25 MG TAB PO SCH ×2 (11:13→20:33)
[2019-09-25] MEDS: Amlodipine 5 MG TAB PO SCH (11:13)
[2019-09-25] MEDS: Acetaminophen 325 MG TAB PO PRN (13:13)
--- NOTE | 2019-09-25 16:54 | PDOC.HOSPP ---
- Subjective Encounter Date: 09/25/19 Encounter Time: 10:00 Subjective: F/u: stroke THe patient has no new complaints. He continues to have some right sided weakness. No chest pain or shortness of breath. Patient has a bed today. BP was only 120 this morning without BP medications. Repeat BP 140, patient only given amlodipine 10 mg and adequately controlled. - Objective Vital Signs & Weight: Vital Signs (12 hours) Temp Pulse Resp BP BP Pulse Ox 09/25/19 16:00 98.1 F 91 16 148/82 H 95 09/25/19 11:40 98.7 F 80 20 143/92 H 94 L 09/25/19 11:13 79 146/79 H 09/25/19 11:10 146/79 H 09/25/19 07:46 98.0 F 84 18 125/89 94 L Weight Admit Weight 298 lb Weight 298 lb 8.094 oz Most Recent Monitor Data Heart Rate from ECG 97 NIBP 135/86 NIBP BP-Mean 102 Respiration from ECG 19 SpO2 100 I&O: 09/24/19 09/25/19 09/26/19 06:59 06:59 06:59 Intake Total 1780 1800 Output Total 2550 2100 Balance -770 -300 Result Diagrams: 09/22/19 04:09 09/22/19 04:09 Hospitalist ROS - Review of Systems Constitutional: denies: fever Respiratory: denies: cough, dry, shortness of breath - Medication Medications: Active Medications Generic Name Dose Route Start Last Admin Trade Name Freq PRN Reason Stop Dose Admin Acetaminophen 650 mg 09/18/19 18:10 09/25/19 13:13 Tylenol PO 650 mg Q6H PRN Administration Fever>101/(Mi/Mod/Sev) Pain Amlodipine Besylate 10 mg 09/23/19 09:00 09/25/19 11:13 Norvasc PO 10 mg DAILY IDALIA Administration Carvedilol 37.5 mg 09/24/19 21:00 09/25/19 11:13 Coreg PO Not Given BID IDALIA Clonidine 0.1 mg 09/24/19 21:00 09/25/19 11:10 Catapres PO Not Given BID IDALIA - Exam General Appearance: NAD, awake alert Eye: PERRL, anicteric sclera ENT: normocephalic atraumatic, no oropharyngeal lesions Neck: supple, no JVD Heart: RRR, no murmur, no gallops, no rubs Respiratory: CTAB, no wheezes, no rales, no ronchi Gastrointestinal: soft, non-tender, non-distended, normal bowel sounds Extremities: no cyanosis, no clubbing, no edema Skin: normal turgor, no lesions, no rashes Neurological: cranial nerve grossly intact, normal sensation to touch, no focal deficits, no new deficit Musculoskeletal: normal tone, normal strength, no muscle wasting Psychiatric: normal affect, normal behavior, A&O x 3, oriented to person, oriented to place Hosp A/P - Plan CT brain 09/18: left basal ganglia hemorrhage CT brain 09/19: left basal ganglia heomrrhage MRI 09/18: left basal ganglia infarction Chest X ray 09/18: mild cardiomegaly This is a 49 year old male who presented with confusion and right sided weakness , found to have intracerebral hemorrhage #Intracerebral hemorrhage - patient with residual right sided weakness - diet currently NDDI pureed with nectar thick liquid, speech is following - continue physical therapy, OT and speech - needs inpatient rehab #Hypertensive urgency - previously had hypertensive emergency with uncontrolled hypertension with stroke, was on nicardipine drip - BP better controlled today, coreg and clonidine were held - continue amlodipine 10 mg daily. Monitor for 24 hours to see how it does overnight Hyponatremia - resolved Dispo: needs rehab, adequate BP control
[2019-09-25] MEDS ORDERED: cefTRIAXone\\ROCEPHIN 2 GM in Sodium Chloride 0.9% 100 ML IVPB SCH (23:00)
[2019-09-26 05:05] LABS: Mean Corpuscular HGB CONC 33.8 g/dL (32.0-36.0); Mean Corpuscular Hemoglobin 31.8 pg (27.0-31.0); Mean Corpuscular Volume 93.9 fL (78.0-98.0); Mean Platelet Volume 7.5 fL (7.4-10.4); Platelet Count 241 thou/uL (130-400); RBC Distribution Width 12.6 % (11.5-14.5); Red Blood Cell (RBC) Count 4.39 mill/uL (4.70-6.10); White Blood Cell (WBC) Count 6.5 thou/uL (4.8-10.8)
[2019-09-26 05:29] LABS: Anion Gap 12 mmol/L (10-20); BUN (Urea Nitrogen) 18 mg/dL (8.9-20.6); Calc. Creatinine Clearance 219 mL/min (70-130); Calcium 9.4 mg/dL (7.8-10.44); Carbon Dioxide 26 mmol/L (22-29); Chloride 101 mmol/L (98-107); Estimated GFR-MDRD Greater than 90; Glucose 120 mg/dL (70-105); Potassium 3.4 mmol/L (3.5-5.1); Sodium 136 mmol/L (136-145)
[2019-09-26] MEDS ORDERED: Potassium Chloride 20 MEQ TAB PO SCH (08:00)
[2019-09-26] MEDS ORDERED: Tamsulosin HCl 0.4 MG CAP PO SCH (09:00)
[2019-09-26] MEDS: cloNIDine 0.1 MG TAB PO SCH (09:27)
[2019-09-26] MEDS: Amlodipine 5 MG TAB PO SCH (09:30)
[2019-09-26] MEDS: Carvedilol 25 MG TAB PO SCH (09:30)
[2019-09-26 11:55] VITALS: BP 135/89; TEMP 98.8
[2019-09-26] MEDS ORDERED: Cefdinir 300 MG CAP PO SCH (21:00)
--- NOTE | 2019-09-27 13:00 | DIS ---
DATE OF ADMISSION: 09/18/2019 DATE OF DISCHARGE: 09/26/2019 DISCHARGE DIAGNOSES: Intracerebral hemorrhage, hypertensive urgency, hyponatremia, dysphagia, hypokalemia, and Escherichia coli urinary tract infection. CONSULTATIONS: Dr. Samuel Chacon with Pulmonary Critical Care, Neurosurgery with Dr. Phil Jasso. BRIEF HISTORY OF PRESENT ILLNESS: This is a 49-year-old male with past medical history of hypertension, who had presented to the emergency room with slurred speech and right upper extremity weakness. The patient had presented to the emergency room, had a CT scan of the brain, which showed a left basal ganglia hemorrhage. The patient's blood pressure on presentation was 180/110. The patient was admitted to the ICU and initially admitted to the Neurosurgical Service. HOSPITAL COURSE: Hypertensive emergency with intracerebral hemorrhage: The patient was initially admitted under the Neurosurgical Service. However, since the patient was not a surgical candidate, he was eventually transferred over to the Hospitalist Service. The patient was initially on a nicardipine drip. Blood pressures were very labile in the hospital, ranging from 140s to 190s. Eventually, his blood pressure was controlled with amlodipine 10 mg, Coreg 37.5 mg, and clonidine 0.1 mg p.o. at bedtime. The patient's blood pressure seems to be more elevated in the evening. Therefore, the amlodipine is to be taken in the morning and the Coreg and the clonidine at night. The patient will need to follow up with Dr. Jasso in 6 weeks with a repeat MRI of the brain with and without contrast, and MRA and MRV. His aspirin was discontinued on discharge. The patient was noted to have persistent right-sided weakness on the day of discharge. His right upper extremity appears to be weaker than his right lower extremity. He was seen by Speech Therapy and a nectar thick liquid diet was recommended. He was seen by PT and OT and thought to be candidate for rehab. However, due to the patient not having insurance, he was set up with [facility] on discharge. The patient did have echocardiogram. Urinary retention: The patient did have some urinary retention, which required placement of a Gonzales catheter. When bladder training was attempted, it was unsuccessful. Therefore, the patient was decided to be discharged with a Gonzales catheter to [facility] and this can be further evaluated there. He was discharged with Flomax. The patient did have a UA that was consistent with E coli UTI. He was started on cefdinir and will be discharged with 7 days of antibiotics. Hyponatremia: The patient had a sodium of 135, which improved to 136 on day of discharge. Hypokalemia: The patient had a potassium of 3.4. Supplementation was given 40 mg on the day of discharge. DISCHARGE PHYSICAL EXAMINATION: VITAL SIGNS: Temperature 98.8, heart rate 80, respiratory rate 16, O2 saturation 96% on room air, and blood pressure 135/89. GENERAL: The patient is alert, awake, and oriented x3. CVS: Regular rate and rhythm with no murmurs, rubs, or gallops. LUNGS: Clear to auscultation bilaterally. ABDOMEN: Positive bowel sounds, soft, nontender, and nondistended. EXTREMITIES: No edema. NEURO: The patient's cranial nerves 2 through 12 are intact. His right upper extremity has 2/5 strength, right lower extremity 3/5 strength, left upper extremity 5/5, left lower extremity 5/5. Sensations intact in all 4 extremities. PERTINENT LABORATORY DATA: CBC on 09/26: Unremarkable. BMP on 09/26: Showed potassium of 3.4. Rest of BMP is unremarkable. LFTs on 09/18: Unremarkable. CK on 09/18 was 224. Troponin I less than 0.010. UA on 09/24 shows turbid urine with 500 leukocyte esterase, greater than 50 white blood cells. Urine toxicology: Unremarkable. PERTINENT IMAGING: CT of the brain on 09/18: Shows left basal ganglia hemorrhage. CT brain on 09/19: Shows left basal ganglia hemorrhage, stable. MRI on 09/18: Showed a left basal ganglia infarction. Chest x-ray on 09/18: Shows mild cardiomegaly. DISCHARGE CONDITION: Stable for Cam Yanez. ACTIVITY: As tolerated. DIET: Heart healthy diet. DISCHARGE MEDICATIONS: New prescriptions: 1. Cefdinir 300 mg p.o. b.i.d. 2. Clonidine 0.1 mg p.o. at bedtime. 3. Flomax 0.4 mg p.o. daily. 4. Coreg 37.5 mg p.o. at bedtime. 5. Amlodipine 10 mg p.o. daily. DISCHARGE INSTRUCTIONS: The patient should follow up with his PCP in a week for additional monitoring of his blood pressure. He should follow up with Dr. Jasso in 6 weeks with repeat MRI of the brain with and without contrast, MRA and MRV. He should stop taking aspirin. He was discharged with a Gonzales catheter and should see a urologist as an outpatient to see if it can be removed. He should take cefdinir to complete a 7-day course of antibiotics. Job ID: [id number]
== END 2019-09-26 13:05 | DRG 64 ==
LOC: EDBD 10:03 → ERS 10:03 → CCU 10:33 → 2SE 09-19 16:50
PROVIDERS: ADMIT Surgery; ATTEND Surgery
DX: I61.0 Nontraumatic intracerebral hemorrhage in hemisphere, subcortical (principal); G93.6 Cerebral edema; E87.1 Hypo-osmolality and hyponatremia; G81.01 Flaccid hemiplegia affecting right dominant side; R47.01 Aphasia; I10 Essential (primary) hypertension; R40.2362 Coma scale, best motor response, obeys commands, at arrival to emergency department; R40.2142 Coma scale, eyes open, spontaneous, at arrival to emergency department; R40.2232 Coma scale, best verbal response, inappropriate words, at arrival to emergency department; R29.810 Facial weakness; E66.01 Morbid (severe) obesity due to excess calories; I16.0 Hypertensive urgency; Z90.49 Acquired absence of other specified parts of digestive tract; Z79.82 Long term (current) use of aspirin; Z68.38 Body mass index [BMI] 38.0-38.9, adult
CPT/HCPCS: 36415; 36416; 51702; 70450; 70553; 71045; 80048; 80053; 80306; 80307; 81001; 81003; 82550; 84484; 85025; 85027; 85610; 85730; 86850; 86900; 86901; 87077; 87086; 87186; 93005; 94760; 96360; A9579; J0360; J0696; J3490; J7050

== ENCOUNTER 2020-01-22 11:29 | Outpatient (CLI) | payer OTHER ==
[2020-01-22 12:05] LABS: Estimated GFR-MDRD - POC Greater than 90
--- NOTE | 2020-01-22 12:51 | MRI ---
Exam: MRI brain exam of the [place] MR venogram HISTORY: no hemorrhage, secondary to hypertension TECHNIQUE: Axial 3-D [id number] imaging is performed for the MR angiography of the head. Coronal 2-D time of flight imaging is performed for the MR venogram the head FINDINGS: MRI brain exam of the head: Symmetric flow related signal in distal cervical and intracranial interna l carotid arteries Anterior circulation images appropriate flow related signal in the A1 segments, M1 segments, A2 segme nts and proximal MCA branches. 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 Bilateral PICA artery origins have appropriate flow related signal. Both vertebral arteries supply a normal appearing basilar artery. Bilateral P1 segments have appropriate f low related signal MR venogram of the head: There is appropriate flow related signal in the superior sagittal sinus, str aight sinus, vein of Kamari, internal cerebral veins, transverse sinuses and sigmoid sinuses. No evidence of significant vascular occlusion. IMPRESSION: 1. No evidence of significant stenosis, occlusion or aneurysm at the level of [place]. 2. Patent venous system
--- NOTE | 2020-01-22 13:02 | MRI ---
Exam: Brain MRI with and without contrast HISTORY: Stroke with right-sided weakness. Left basal ganglion hemorrhage. COMPARISON: 07/26/2020 FINDINGS: Gradient echo sequence: Hemosiderin deposition in the region of a previously identified left basal ga nglia hemorrhagic infarct Calvarium: Appropriate T1 marrow signal intensity Midline brain parenchyma: Unremarkable Cerebrum:Expected evolutionary changes with brain parenchymal changes due to remote hemorrhagic infar ct in the left deep kitchen matter structures. There is decreasing T2 and FLAIR hyperintensity. Decreasing mass effect and sulcal effacement. No midline shift. Basilar cisterns are patent. Brain vo lume is age-appropriate. Additional T2 and FLAIR white matter hyperintensities due to chronic small vessel ischemic change. Stable remote lacunar infarct in the midbrain Ventricles: No evidence of hydrocephalus. Sinuses and mastoid air cells: Adequate aeration Diffusion: Central arterial flow is maintained. Absent restricted diffusion. Postcontrast images: No pathologic enhancement of the brain parenchyma. IMPRESSION: 1. 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
== END 2020-01-22 11:30 | disposition home or self-care (01) ==
LOC: MRI 11:29
PROVIDERS: ATTEND Surgery
DX: I61.9 Nontraumatic intracerebral hemorrhage, unspecified (principal); G93.6 Cerebral edema; I10 Essential (primary) hypertension
CPT/HCPCS: 70544; 70553; 82565